=== PATIENT | female | born 1965 | race Caucasian/White ===

== ENCOUNTER → 2020-03-02 | Outpatient (CLI) | payer BC ==
--- NOTE | 2020-03-07 08:37 | RAD ---
EXAMINATION: Bilateral screening mammogram, 03/02/2020 2:30 PM CLINICAL INDICATION: 54-year-old woman presenting for screening mammogram. COMPARISON: Screening mammogram 07/29/2013 TECHNIQUE: Digital bilateral full-field CC and MLO views of the breasts were obtained. CAD was utilized. FINDINGS: The breasts are heterogeneously dense, which may obscure small masses. There is no mass, suspicious calcification, or architectural distortion. IMPRESSION: 1. No mammographic evidence of malignancy. 2. BI-RADS 1: Negative. 3. Routine annual screening mammogram is recommended in 1 year. The patient will receive a reminder letter by mail when she is due for her next exam. Electronically signed by: Zamzam Ceron MD (03/07/2020 8:34 AM) [id number]
== END ==
LOC: MAMMO 14:11
PROVIDERS: ATTEND Specialist
DX: Z12.31 Encounter for screening mammogram for malignant neoplasm of breast (principal)
CPT/HCPCS: 77067

== ENCOUNTER → 2021-09-25 | Outpatient (CLI) | payer BC ==
--- NOTE | 2021-09-25 17:10 | RAD ---
EXAM: 1. CHEST 2 VIEWS. 2. THORACIC SPINE 3 VIEWS. HISTORY: Cough, back pain. COMPARISON: None. FINDINGS: There are no confluent infiltrates. There is no pneumothorax or pleural effusion. The heart is not enlarged. There is a mild pectus excavatum deformity. The lungs are expanded to the 11th post erior ribs. There is a mild lower lumbar levocurvature. No fractures are identified. There is mild upper and mid thoracic degenerative disc disease. Degenerative disc disease is moderate from C5 through C7. Approxi mately 2 mm anterolisthesis is noted at C4-5, likely from facet osteoarthritis. IMPRESSION: 1. Hyperinflation. Correlate to exclude air trapping. No confluent infiltrates. 2. Mild upper and mid thoracic degenerative disc disease. 3. Additional cervical degenerative changes, incompletely evaluated as above. Electronically signed by: Yassine Schneider MD (09/25/2021 5:07 PM) [id number]
== END ==
LOC: RAD 14:04
PROVIDERS: ATTEND Specialist
DX: J98.11 Atelectasis (principal); M47.812 Spondylosis without myelopathy or radiculopathy, cervical region; M51.34 Other intervertebral disc degeneration, thoracic region; M43.12 Spondylolisthesis, cervical region
CPT/HCPCS: 71046; 72072